=== PATIENT | female | born 1965 | race Caucasian/White ===

== ENCOUNTER 2019-05-14 18:06 | Emergency (ER) | payer SELFPAY ==
[~2019-05-14] VITALS: Wt 68.0 kg
[~2019-05-14 18:06] MED LIST: CLARITIN10 MG PO; POTASSIUM1 PDS PO; PROVENTIL0.09 MG/AC IH; ZITHROMAX Z PA250 MG PO
[2019-05-14] MEDS ORDERED: ANAPROX DS550 MG PO (21:00)
== END 2019-05-14 21:15 | disposition home or self-care (01) ==
LOC: ED 18:06
DX: S63.114A Dislocation of metacarpophalangeal joint of right thumb, initial encounter (principal); F17.200 Nicotine dependence, unspecified, uncomplicated; Z79.899 Other long term (current) drug therapy; W22.8XXA Striking against or struck by other objects, initial encounter; Y93.89 Activity, other specified; Y92.89 Other specified places as the place of occurrence of the external cause; Y99.8 Other external cause status